=== PATIENT | female | born 1955 | race Caucasian/White ===

== ENCOUNTER → 2017-11-23 | Outpatient (CLI) | payer OTHER ==
[~2017-11-23] VITALS: Ht 160 cm; Wt 81.6 kg
[~2017-11-23] MED LIST: ALBUTEROL2.5 MG/0.1 INH; ALLEGRA ALLERG180 MG PO; AMBIEN 10 MG TA10 MG PO; ANASTROZOLE1 MG PO; ANUSOL-HC25 MG RECTAL; BENADRYL25 MG PO; BENTYL 20 MG TA20 M1 PO; CALCIUM + VIT1 EACH PO; CELEBREX 200 M200 MG PO; CIPRO500 MG/5 M; CLARITIN-D 24 H1 TA1; COMBIVENT INH; CYCLOBENZAPRINE10 MG; DUONEB 2.5-0.5 M3 ML INH; EPIPEN 2-P0.3 MG/0.3; FAMOTIDINE PO; FISH OIL 1,0001 EAC5 PO; FLONASE; FLONASE 0.05%50 MCG; HYDROCODON-ACE1 EAC7 PO; HYDROCORTISONE30 G9 RECTAL; IBUPROFEN 800800 M1; LIDOCAINE VISC100 ML SWISH&SPIT; MEDROL DOSPAK21 TA1 PO; MEDROLDOSEPACK PO; MOBIC15 MG PO; NEURONTIN600 MG PO; PERCOCET 5-3251 EACH PO; PHENTERMINE H37.5 MG; PLAVIX 75 MG TA75 M1 PO; PRAVACHOL40 MG PO; PROTONIX40 M2 PO; QUESTRAN POWDE378 GM PO; ROBAFEN AC SYR120 ML PO; ROBITUSSIN100 MG/52; SINGULAIR 10 MG10 M1 PO; SYMBICORT160 MCG/4. INH; TIZANIDINE HCL2 M1 PO; TRAMADOL 50 MG50 MG PO; TRAZODONE 150150 M1 PO; TRIAMCINOLONE A80 G2 TOP; TUMS PO; VENTOLIN HFA 1818 GM INH; VENTOLIN HFA INH8 GM INH; VITAMIN D1000 UNI1 PO; VITAMIN D2000 UNI1 PO; XANAX 0.5 MG0.5 M1 PO; ZANTAC; ZPAK PO
--- NOTE | ~2017-11-23 | CATHLAB ---
[facility] [address] [place] [address] INVASIVE PROCEDURE REPORT Name: RUDDY CARBAJAL Room #: REG [facility]#: [id number] Admission: 11/23/17 Attend Phys: Sherif Bustillo Discharge: Date of : 55 Date of Service: 11/30/17 0950 Report #: [id number] THIS REPORT FOR: //name// APPROVED REPORT Study performed: 11/23/2017 08:16:02 Patient Details Patient Status: Out-Patient Room #: The patient is a 62 year-old female Event Personnel Sherif Millan Overlay Operator, Kin Peres Dining Host, Moy Roman RT(R)(CV) Monitor, Fern Mohan Monitor, Manny White Scrub Procedures Performed Art Access - R femoral artery* Left Heart Cath w/or w/o Coronaries [id number] [facility] [id number] Initial Mod Sed Same Phys/QHP Gr5y [id number] Hemostasis with Manual pressure, supervision of conscious sedation Indication Positive stress test, Chest pain Procedure Narrative The patient was brought electively to the Cardiac Catheterization Laboratory and was prepped and draped in a sterile manner. The Right Groin^ was infiltrated with 1% Lidocaine subcutaneous anesthesia. A PINNACLE 4FR Sheath #[id number] sheath was inserted into the RFA^. Coronary angiography was performed using coronary diagnostic catheters. The right coronary system was accessed and visualized with a JR4 catheter. The left coronary system was accessed and visualized with a JL4 catheter. The left ventricle was accessed and visualized with a Pigtail catheter. Left ventricular/Aortic Valve gradient assessed via catheter pullback. Hemostasis was obtained with manual pressure following sheath removal without any complications. The patient tolerated the procedure well and there were no complications associated with the procedure. There was no hematoma. Intraoperative Conscious Sedation Sedation start time: 937 Case end Time: 1015 Versed 2 mg [facility] [place] [address] INVASIVE PROCEDURE REPORT Name: SOLOMONRUDDY F Room #: REG [facility]#: [id number] Admission: 11/23/17 Attend Phys: Sherif Bustillo Discharge: Date of : 55 Date of Service: 11/30/17 0950 Report #: [id number] Fluoro Time: 1.50 minutes Dose: DAP 1652.00 cGycm2 216 mGy Contrast Type and Amount: Omnipaque 40 ml Coronary Angiography The patient's coronary anatomy is right dominant. Diagnostic Cath Left Main Moderate caliber vessel normal origin and has a minimal proximal taper of less than 20%. No obstructive lesions are present. LAD Small to moderate caliber type II vessel which courses in the anterior interventricular sulcus. It gives rise to small diagonal branches. It has luminal irregularities but no high-grade lesions are noted. Does taper 2 quite small in size at the apex which is his terminus Diagonal 1 Small-caliber vessel without significant obstructive lesion Circumflex Small to moderate non-dominant vessel courses laterally giving rise to a large marginal branch which is tortuous in its course. The circumflex then terminates as a small vessel and the posterior wall of the heart. The marginal branches without significant high-grade lesions OM1 Small liver vessel at significant obstructive lesions noted Right Coronary Large-caliber dominant vessel which courses in the AV groove with luminary irregularities proximally. He gives us a posterior descending artery and posterolateral branch which are small in size. No high-grade obstructive lesions are noted although plaquing which is mild is seen as described R PDA Lydia or vessel without significant obstructive lesions noted Left Ventriculography Left Ventriculography was not performed. Hemodynamics The aortic pressure is 118/70 mmHg with a mean of 92 mmHg. The left ventricular pressure is 139/13 mmHg with a mean of mmHg. The left ventricular end diastolic pressure is 20 mmHg. Conclusion 1. 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 Normal hemodynamics [facility] [address] [place] [address] INVASIVE PROCEDURE REPORT Name: RUDDY CARBAJAL Room #: [facility]#: [id number] Admission: 11/23/17 Attend Phys: Sherif Bustillo Discharge: Date of : 55 Date of Service: 11/30/17 0950 Report #: [id number] Recommendations Cardiac Risk Reduction Program <ELECTRONICALLY SIGNED> By: Sherif Millan MD 11/30/1750 9 Sherif Millan MD /INF
--- NOTE | ~2017-11-23 | EKG ---
[place] [address] [facility] [place] [address] ELECTROCARDIOGRAM REPORT Name: RUDDY CARBAJAL Room #: REG [facility]#: [id number] Admission: 11/23/17 Attend Phys: Sherif Millan Discharge: Date of : 55 Report #: [id number] THIS REPORT FOR: //name// [facility] Test Date: 2017-11-23 Test Time: 08:05:51 Pat Name: RUDDY CARBAJAL Department: Room: Gender: F Animal Care Service Worker: Lea PENA : 1955 Requested By: Sherif Millan Order Number: [id number] MD: Benedict Rojas Measurements Intervals [place] Rate: 76 P: 69 ME: 144 QRS: 7 QRSD: 90 T: 26 QT: 411 QTc: 463 Interpretive Statements Sinus rhythm RSR' in V1 or V2, right VCD Compared to ECG 08/05/2015 15:48:22 RSR' in V1 or V2 now present anterior T-wave abnormality more prominent Electronically Signed On 11-23-2017 16:13:15 CDT by Benedict Rojas [email or web address] <ELECTRONICALLY SIGNED> By: Benedict Rojas MD, [facility] 11/23/17 1613 0805 0805 Benedict Rojas MD, [facility] /EPI
--- NOTE | ~2017-11-23 | H ---
[facility] [place] [address] [place] [address] HISTORY AND PHYSICAL Name: RUDDY CARBAJAL Room #: REG [facility].#: [id number] Admission: 11/23/17 Attend Phys: Sherif Millan Discharge: Date of : 55 Report #: [id number] THIS REPORT FOR: //name// CC: Trinity Millan DATE OF SERVICE: 11/23/2017 HISTORY OF PRESENT ILLNESS: This is a very pleasant 62-year-old female patient who had been evaluated as an outpatient for chest discomfort. The patient underwent noninvasive assessment, which yielded an intermediate risk study. Etiologies other than cardiac were not identified and subsequently the patient continued to have symptomatology. She now presents for cardiac catheterization for delineation of coronary anatomy and determination of cardiac source for symptoms. PHYSICAL EXAMINATION: GENERAL: A well-developed, well-nourished white female, resting comfortably in no acute distress. VITAL SIGNS: Temperature is 36.8, pulse is 82, respirations are 12-14, blood pressure 115/61, O2 saturation on room air is 92%. HEENT: Normocephalic, atraumatic. Pupils are equal, round, reactive to light and accommodation. Extraocular muscles are intact. Sclerae and conjunctivae are anicteric. NECK: JVD is normal. Carotid upstrokes are bilaterally symmetrical. No bruits are heard. No thyromegaly. No lymphadenopathy. LUNGS: Clear to auscultation. No wheezes, rhonchi or crackles. No CVA tenderness. CARDIAC: Demonstrates a regular rhythm. Normal first and second heart sounds. No ventricular or atrial gallops, no rubs noted. No murmurs. No lifts or heaves, PMI normal. ABDOMEN: Soft, nontender, nondistended. Normal bowel sounds. EXTREMITIES: Without cyanosis, clubbing or edema. Distal pulses are intact. DTR symmetrical. NEUROLOGIC: Cranial nerves 2-12 are grossly normal and symmetrical. PSYCHIATRIC: Alert, oriented with normal affect. SKIN: Warm and dry. IMPRESSION: Chest pains and abnormal noninvasive workup. The patient had been evaluated and subsequent cardiac catheterization was recommended as stated above. The risks, complications, and alternatives of cath, angioplasty and [facility] [address] [place] [address] HISTORY AND PHYSICAL Name: RUDDY CARBAJAL Room #: [facility]#: [id number] Admission: 11/23/17 Attend Phys: Sherif Millan Discharge: Date of : 55 Report #: [id number] conscious sedation have been discussed with the patient, voices understanding and wishes to proceed. <ELECTRONICALLY SIGNED> By: Sherif Millan MD 12/10/172009 0910 0974 Sherif Millan MD /nt
[2017-11-23 07:58] VITALS: BP 115/61
[2017-11-23 08:54] LABS: HEMATOCRIT 41.5 % (37.0-47.0); HEMOGLOBIN 13.7 gm/dL (12.0-15.0); MCH 29.7 pg (26.0-34.0); MCHC 33.1 g/dL (28.0-37.0); MCV 89.9 fL (80.0-100.0); RBC 4.61 mil/uL (4.20-5.00); WBC 5.6 thou/uL (4.0-11.0)
[2017-11-23 09:03] LABS: CALCIUM 8.8 mg/dL (8.5-10.1); CREATININE 0.8 mg/dL (0.6-1.0); POTASSIUM 3.3 mmol/L (3.5-5.1)
== END | disposition home or self-care (01) ==
LOC: CATH 07:39
PROVIDERS: Internal Medicine
DX: I25.10 Atherosclerotic heart disease of native coronary artery without angina pectoris (principal); E78.5 Hyperlipidemia, unspecified; J44.9 Chronic obstructive pulmonary disease, unspecified; I73.9 Peripheral vascular disease, unspecified; K21.9 Gastro-esophageal reflux disease without esophagitis; M19.90 Unspecified osteoarthritis, unspecified site; M81.0 Age-related osteoporosis without current pathological fracture; M79.7 Fibromyalgia; E66.09 Other obesity due to excess calories; Z88.6 Allergy status to analgesic agent; Z79.899 Other long term (current) drug therapy; Z82.49 Family history of ischemic heart disease and other diseases of the circulatory system; Z98.890 Other specified postprocedural states; Z90.49 Acquired absence of other specified parts of digestive tract; Z88.8 Allergy status to other drugs, medicaments and biological substances; Z79.891 Long term (current) use of opiate analgesic

== ENCOUNTER → 2017-12-07 | Outpatient (CLI) | payer OTHER | LOC: RAD 13:42 | DX: J44.9 Chronic obstructive pulmonary disease, unspecified (principal) ==

== ENCOUNTER 2018-03-14 21:43 | Emergency (ER) | payer OTHER ==
[~2018-03-14] VITALS: Ht 160 cm; Wt 79.8 kg
[2018-03-14] MEDS ORDERED: COLESTID5 GM PO (22:56)
[2018-03-14] MEDS ORDERED: PROLIA60 MG/1 ML SUBQ (22:57)
[2018-03-14] MEDS ORDERED: FISH OIL 1,001000 M2 PO (22:57)
[2018-03-14] MEDS ORDERED: LASIX 40 MG TAB40 M2 PO (22:58)
[2018-03-14] MEDS ORDERED: POTASSIUM20 PO (23:00)
[2018-03-14] MEDS ORDERED: CRESTOR10 MG PO (23:01)
[2018-03-14] MEDS ORDERED: PRILOSEC 20 MG20 MG PO (23:55)
[2018-03-14] MEDS ORDERED: ZPAK PO (23:55)
[2018-03-14] MEDS ORDERED: PREDNISONE 20 M20 MG PO (23:55)
[2018-03-14] MEDS ORDERED: TESSALON PERLE100 MG PO (23:55)
[2018-03-15 00:40] VITALS: BP 158/64
== END 2018-03-15 00:42 | disposition home or self-care (01) ==
LOC: ER 21:43
DX: J32.9 Chronic sinusitis, unspecified (principal); J44.9 Chronic obstructive pulmonary disease, unspecified; K21.9 Gastro-esophageal reflux disease without esophagitis; J02.9 Acute pharyngitis, unspecified; M79.7 Fibromyalgia; M19.90 Unspecified osteoarthritis, unspecified site; E78.5 Hyperlipidemia, unspecified; F17.210 Nicotine dependence, cigarettes, uncomplicated; Z79.899 Other long term (current) drug therapy; Z88.1 Allergy status to other antibiotic agents; Z88.5 Allergy status to narcotic agent; Z88.8 Allergy status to other drugs, medicaments and biological substances

== ENCOUNTER → 2018-06-28 | Outpatient (CLI) | payer OTHER ==
[~2018-06-28] MED LIST changes: +COLESTID5 GM PO; +CRESTOR10 MG PO; +FISH OIL 1,001000 M2 PO; +LASIX 40 MG TAB40 M2 PO; +POTASSIUM20 PO; +PREDNISONE 20 M20 MG PO; +PRILOSEC 20 MG20 MG PO; +PROLIA60 MG/1 ML SUBQ; +TESSALON PERLE100 MG PO
== END ==
LOC: RAD 08:30
DX: J98.4 Other disorders of lung (principal)

== ENCOUNTER → 2019-09-06 | Outpatient (CLI) | payer OTHER | LOC: SJCVC 13:51 | DX: E78.5 Hyperlipidemia, unspecified (principal); I25.10 Atherosclerotic heart disease of native coronary artery without angina pectoris; I10 Essential (primary) hypertension ==

== ENCOUNTER → 2019-09-07 | Outpatient (CLI) | payer OTHER | LOC: SJCVCIMAG 08:49 | DX: I07.1 Rheumatic tricuspid insufficiency (principal); I25.10 Atherosclerotic heart disease of native coronary artery without angina pectoris; J44.9 Chronic obstructive pulmonary disease, unspecified; E11.9 Type 2 diabetes mellitus without complications ==

== ENCOUNTER 2019-09-27 06:48 | Day surgery (SDC) | payer OTHER ==
[~2019-09-27] VITALS: Ht 160 cm; Wt 82.6 kg
--- NOTE | ~2019-09-27 | O ---
[facility] [place] [address] [place] [address] OPERATIVE REPORT Name: RUDDY CARBAJAL Room #: 150-5 [facility]#: [id number] Admission: 09/27/19 Attend Phys: John Luna MD Discharge: Date of : 55 Report #: [id number] THIS REPORT FOR: cc: Trinity Monroy MD,Trinity Luna,John Adorno MD ~ CC: Trinity Luna DATE OF SERVICE: 09/27/2019 SURGEON: John Luna MD DISEASE CASE MANAGER RN: None. PREOPERATIVE DIAGNOSIS: Bilateral upper lid dermatochalasia with superior visual field defect. POSTOPERATIVE DIAGNOSIS: Bilateral upper lid dermatochalasia with superior visual field defect. OPERATION PERFORMED: Bilateral upper lid functional blepharoplasty. ANESTHESIA: Local with IV sedation. COMPLICATIONS: None. INDICATIONS FOR SURGERY: This patient has acquired upper lid dermatochalasia with superior visual field loss both eyes because of excessive upper lid tissues to include skin and fat. Visual field testing demonstrates dense superior visual defects. Retesting with the upper lid elevated shows an improvement in visual field loss of over 30% and in excess of 12 degrees. The current procedures are undertaken in order to improve the patient's visual function. Informed consent was obtained to include but not limited to the loss of vision, bleeding, infection, scarring, failure to improve the problem and need for further surgery. DESCRIPTION OF OPERATION: The patient was taken to the operating room, where 2% Xylocaine with epinephrine mixed with equal parts of 0.75% Marcaine with Wydase was administered transcutaneously to each upper lid. The patient was then prepped and draped in the usual sterile fashion and a skin-marking pen was then utilized to outline an upper lid crease that was symmetrical on each side. Graefe forceps were then used to quantitate the redundant upper lid skin and it was similarly outlined. The incisions were then made with Yenni scissors and [facility] [address] [place] [address] OPERATIVE REPORT Name: RUDDY CARBAJAL Room #: [address] [place] [address].#: [id number] Admission: 09/27/19 Attend Phys: John Luna MD Discharge: Date of : 55 Report #: [id number] a skin-muscle flap removed from each side with high-temp cautery. Hemostasis was achieved with the monopolar cautery as it was throughout the case. The orbital septum was then identified and the central and medial fat pads were inspected. The redundant soft tissue was then sculpted with the monopolar cautery. The upper lid crease was then reformed with tightening of the pretarsal orbicularis muscle. The upper lid crease was then further reformed with multiple interrupted 6-0 chromic sutures. The skin was then closed with a running 6-0 plain gut suture. The wound was then cleaned and dressed with ophthalmic antibiotic ointment and a nonstick dressing. The patient was transported to the recovery area, where cold compresses were applied, having tolerated the procedure well with no anesthetic or operative complications being noted. By: 0913 0920 John Luna MD /nt
[~2019-09-27 06:48] MED LIST changes: -ANASTROZOLE1 MG PO; +ARIMIDEX1 MG PO; +BROVANA15 MCG/2 M INH; +FOSAMAX 70 MG T70 MG PO; +IPRAT-ALBUT 0.5-3 ML INH; +LISINOPRIL5 MG PO; +METFORMIN HCL500 M3 PO; +PULMICORT0.5 MG/22 INH; +VITAMIN D325 MC3 PO
[2019-09-27 08:52] VITALS: BP 108/56
== END 2019-09-27 09:55 | disposition home or self-care (01) ==
LOC: TBA 06:48 → OR 06:48
DX: H02.831 Dermatochalasis of right upper eyelid (principal); H02.834 Dermatochalasis of left upper eyelid; H53.462 Homonymous bilateral field defects, left side; H53.461 Homonymous bilateral field defects, right side; I10 Essential (primary) hypertension; E11.9 Type 2 diabetes mellitus without complications; E78.00 Pure hypercholesterolemia, unspecified; F41.9 Anxiety disorder, unspecified; J43.9 Emphysema, unspecified; M79.7 Fibromyalgia; K21.9 Gastro-esophageal reflux disease without esophagitis; M19.90 Unspecified osteoarthritis, unspecified site; M85.80 Other specified disorders of bone density and structure, unspecified site; Z98.890 Other specified postprocedural states; Z85.3 Personal history of malignant neoplasm of breast; Z79.899 Other long term (current) drug therapy; Z90.49 Acquired absence of other specified parts of digestive tract; Z11.59 Encounter for screening for other viral diseases; Z86.73 Personal history of transient ischemic attack (TIA), and cerebral infarction without residual deficits; Z87.891 Personal history of nicotine dependence; Z88.8 Allergy status to other drugs, medicaments and biological substances
CPT/HCPCS: 50010; 50101; 50398; 51636; 56531; 62110; 62850; 70005

== ENCOUNTER → 2019-10-29 | Outpatient (CLI) | payer OTHER ==
[~2019-10-29] MED LIST changes: +ASA5UEC PO; +CALCIUM500 MG PO; +IMODIUM A-D2 MG PO; +TYLENOL EXTRA500 MG PO; +VITAMIN D3125 MC2 PO; +VITAMIN D31250 MC1 PO
== END ==
LOC: RAD 13:38
PROVIDERS: ATTEND Internal Medicine Pulmonary Disease
DX: J47.9 Bronchiectasis, uncomplicated (principal)

== ENCOUNTER 2019-11-08 11:06 | Emergency (ER) | payer OTHER ==
[~2019-11-08] VITALS: Ht 160 cm; Wt 80.7 kg
[2019-11-08 14:56] VITALS: BP 109/64
== END 2019-11-08 14:56 | disposition home or self-care (01) ==
LOC: ER 11:06
DX: M25.551 Pain in right hip (principal); R20.0 Anesthesia of skin; M79.7 Fibromyalgia; K21.9 Gastro-esophageal reflux disease without esophagitis; E11.9 Type 2 diabetes mellitus without complications; M19.90 Unspecified osteoarthritis, unspecified site; E78.00 Pure hypercholesterolemia, unspecified; Z90.49 Acquired absence of other specified parts of digestive tract; Z90.89 Acquired absence of other organs; J44.9 Chronic obstructive pulmonary disease, unspecified; F17.210 Nicotine dependence, cigarettes, uncomplicated; Z86.73 Personal history of transient ischemic attack (TIA), and cerebral infarction without residual deficits; Z79.899 Other long term (current) drug therapy; Z79.82 Long term (current) use of aspirin; Z88.8 Allergy status to other drugs, medicaments and biological substances; Z88.5 Allergy status to narcotic agent; Z91.048 Other nonmedicinal substance allergy status; Z88.1 Allergy status to other antibiotic agents; W19.XXXA Unspecified fall, initial encounter; Y93.01 Activity, walking, marching and hiking; Y92.481 Parking lot as the place of occurrence of the external cause; Y99.8 Other external cause status

== ENCOUNTER 2019-11-14 08:38 | Inpatient (IN) | payer OTHER ==
[2019-11-05 09:24] LABS: HEMATOCRIT 42.2 % (37.0-47.0); HEMOGLOBIN 13.9 gm/dL (12.0-15.0); MCH 29.1 pg (26.0-34.0); MCHC 32.9 g/dL (28.0-37.0); MCV 88.5 fL (80.0-100.0); RBC 4.77 mil/uL (4.20-5.00); RDW 14.9 % (10.5-14.5); URINE BILIRUBIN NEGATIVE (Negative); URINE BLOOD NEGATIVE (Negative); URINE CLARITY CLEAR; URINE COLOR YELLOW; URINE GLUCOSE-RANDOM* NEGATIVE (Negative); URINE KETONES TRACE (Negative); URINE NITRITE-REFLEX NEGATIVE (Negative); URINE PROTEIN (DIPSTICK) NEGATIVE (Negative); URINE SPECIFIC GRAVITY 1.025 (1.005-1.035); URINE UROBILINOGEN 0.2 E.U./dl (0.2-1.0); WBC 5.6 thou/uL (4.0-11.0)
[2019-11-05 09:30] LABS: URINE LEUKOCYTES-REFLEX 2+ (Negative)
[2019-11-05 09:34] LABS: CALCIUM 9.2 mg/dL (8.5-10.1); CREATININE 0.9 mg/dL (0.6-1.0); POTASSIUM 4.2 mmol/L (3.5-5.1)
[2019-11-05 09:35] LABS: PROTIME 10.3 Seconds (9.3-11.4)
[2019-11-05 09:50] LABS: BACTERIA-REFLEX 1-9 Few /HPF (None Seen); CASTS None Seen /LPF (None Seen); CRYSTALS None Seen /LPF (None Seen); SQUAMOUS None Seen /LPF (0-3); URINE RBC None Seen /HPF (0-2)
[~2019-11-14] VITALS: Ht 162.6 cm; Wt 82.1 kg
[2019-11-14 12:06] VITALS: BP 136/92
[2019-11-14 14:55] VITALS: BP 136/92
[2019-11-14 16:55] VITALS: BP 98/52
[2019-11-14 17:50] VITALS: BP 108/72
[2019-11-14 19:07] VITALS: BP 102/58
[2019-11-15 02:52] VITALS: BP 142/92
[2019-11-15 05:38] LABS: HEMATOCRIT 39.7 % (37.0-47.0); HEMOGLOBIN 12.7 gm/dL (12.0-15.0)
[2019-11-15 05:42] LABS: POTASSIUM 3.9 mmol/L (3.5-5.1)
[2019-11-15 07:46] VITALS: BP 134/85
[2019-11-15 12:49] VITALS: BP 134/85
[2019-11-15 13:26] VITALS: BP 134/85
--- NOTE | 2019-11-21 13:10 | O ---
[facility] [place] [place] [address] OPERATIVE REPORT Name: RUDDY CARBAJAL Room #: 443-P [facility] M.R.#: [id number] Admission: 11/14/19 Attend Phys: Freedom Alvarenga Discharge: 11/15/19 Date of : 55 Report #: [id number] THIS REPORT FOR: cc: Trinity Monroy MD, Cora A. MD VanDenBerghe, Gregory R. MD ~ CC: Trinity Knight PREOPERATIVE DIAGNOSES: Left shoulder pain, humeral head avascular necrosis, biceps tendinopathy. POSTOPERATIVE DIAGNOSES: Left shoulder pain, humeral head avascular necrosis, biceps tendinopathy. PROCEDURE PERFORMED: Left shoulder humeral head replacement with open biceps tenodesis. SURGEON: Freedom Hudson MD HIGHWAY CONSTRUCTION INSPECTOR: Maru Nobles PA-C. ANESTHESIA: General with preoperative ultrasound-guided interscalene block. FLUIDS: 700 mL crystalloid. ESTIMATED BLOOD LOSS: Approximately 25 mL. IMPLANTS UTILIZED: DePuy [employer] Unite size 8 stem with 135 degree size ____ proximal body and a 40 x 15 mm eccentric humeral head. DESCRIPTION OF PROCEDURE: After proper identification of the patient and operative site in preoperative holding area, the operative site was signed by myself. Prophylactic antibiotics given. The patient elected to proceed with a block after reviewing the risks, benefits, alternatives and potential complications with anesthesia. The patient's COVID test was negative. The patient was brought back to the operative suite after induction of satisfactory general anesthesia, the left shoulder was examined. Range of motion was comparable to the preoperative assessment. She was carefully positioned in the beach chair with head of bed elevated approximately 40 degrees. Left shoulder was sterilely prepped and draped in the usual manner. Final skin draping was with Ioban. Anterior deltopectoral approach was planned. Skin was incised sharply. Full-thickness skin flaps were developed. Deltopectoral interval was identified and there was no significant cephalic vein present. Subdeltoid space was carefully opened. Bicipital groove was opened. Partial-thickness tearing and biceps tendinopathy was noted and a biceps tenodesis was performed to the [facility] [address] [place] [address] OPERATIVE REPORT Name: RUDDY CARBAJAL Room #: 443-P [facility] IN M.R.#: [id number] Admission: 11/14/19 Attend Phys: Freedom Alvarenga Discharge: 11/15/19 Date of : 55 Report #: [id number] upper border of the pectoralis major. Transverse ligament and rotator interval were opened. Anterior circumflex vessels were ligated and cauterized. A lesser tuberosity osteotomy was performed and a #2 FiberWire was placed within the subscap for gentle retraction. At this point, humeral head was delivered, some collapse was noted and some degenerative appearing chondral surface. Glenoid chondral surface was normal in its appearance with minimal wear or degenerative change and appeared amenable to preserving. We had discussed options of humeral head replacement versus total shoulder arthroplasty with the patient and she would prefer the humeral head replacement if the chondral surface appeared to be well preserved on the glenoid side, which it had. The humeral head was then osteotomized at 135 degrees and a cut of 20 degrees of retroversion, which matched her [place] version. The rotator cuff was intact. Sclerosis about the site of the AVN was noted and the humeral head measured as a size 40 on the back table. The humerus was reamed by hand up to a size 8 stem. A trial broach was utilized. The trial was inserted and a 40 x 15 mm head provided the best overall fit and recreation of the proximal humeral anatomy. Trial implants were removed. Drill holes were placed in the anterior cortex of the humerus. The anterior capsule was carefully divided from the subscapularis with a right angle clamp and then incised. Wound was thoroughly irrigated with normal saline. Four #2 FiberWires were passed through drill holes in the anterior cortex of the humerus. The inferior ____ were wrapped around the prosthesis which was then impacted into position. Trial head was then again utilized followed by a 40 x 15 mm eccentric humeral head, which was carefully impacted into position. It nicely reapproximated the proximal humeral anatomy. Shoulder was reduced. There was good stability of the joint. At this point, the lesser tuberosity osteotomy was repaired at the joint was thoroughly irrigated with normal saline, antibiotic irrigant and this was done in a modified Dave-Ulices technique. Rotator interval was closed with #2 FiberWire as well. The remainder of the cuff was intact. At this point, the wound was again irrigated. One gram of vancomycin powder was utilized, half at deep, half at more superficial. Deltopectoral interval was closed followed by the subcutaneous tissues and a running 4-0 Monocryl was used at the skin layer. This was sealed with Dermabond. She was then placed in a sling and abduction pillow. A qualified assistant plant control operator utilized throughout the entire procedure to aid in patient limb positioning, visualization and retraction of soft tissues as well as a sling and dressing application. Sling will be utilized for 4 weeks postoperatively. <ELECTRONICALLY SIGNED> By: Freedom Hudson MD 11/21/19 1310 1150 1228 MD katelyn Braden
== END 2019-11-15 14:13 | disposition home health service (06) | DRG 483 ==
LOC: PRE 08:38 → 4S 09:33 → TBA 09:33 → PRE 10:48 → 4S 14:53 → PRE 15:37 → 4S 11-15 14:13
PROVIDERS: Physician Assistant Surgical; ADMIT Orthopaedic Surgery Sports Medicine; ATTEND Orthopaedic Surgery Sports Medicine
PROC: 0RRK0J6 Replacement of Left Shoulder Joint with Synthetic Substitute, Humeral Surface, Open Approach (ICD-10-PCS; principal; 2019-11-14)
PROC: 0LS40ZZ Reposition Left Upper Arm Tendon, Open Approach (ICD-10-PCS; 2019-11-14)
DX: M19.012 Primary osteoarthritis, left shoulder (principal); M87.822 Other osteonecrosis, left humerus; J96.11 Chronic respiratory failure with hypoxia; M75.22 Bicipital tendinitis, left shoulder; I10 Essential (primary) hypertension; E78.5 Hyperlipidemia, unspecified; E11.9 Type 2 diabetes mellitus without complications; K21.9 Gastro-esophageal reflux disease without esophagitis; I25.10 Atherosclerotic heart disease of native coronary artery without angina pectoris; Z20.828 Contact with and (suspected) exposure to other viral communicable diseases; M81.0 Age-related osteoporosis without current pathological fracture; J45.909 Unspecified asthma, uncomplicated; M54.16 Radiculopathy, lumbar region; J43.9 Emphysema, unspecified; M47.817 Spondylosis without myelopathy or radiculopathy, lumbosacral region; Z95.820 Peripheral vascular angioplasty status with implants and grafts; Z90.49 Acquired absence of other specified parts of digestive tract; Z85.3 Personal history of malignant neoplasm of breast; Z83.3 Family history of diabetes mellitus; Z83.1 Family history of other infectious and parasitic diseases; Z86.73 Personal history of transient ischemic attack (TIA), and cerebral infarction without residual deficits; Z88.6 Allergy status to analgesic agent; Z88.1 Allergy status to other antibiotic agents; Z88.8 Allergy status to other drugs, medicaments and biological substances; Z79.82 Long term (current) use of aspirin; Z79.899 Other long term (current) drug therapy; Z82.61 Family history of arthritis; Z82.49 Family history of ischemic heart disease and other diseases of the circulatory system
CPT/HCPCS: 10102; 50010; 50101; 50172; 50386; 50417; 50697; 50733; 50935; 51320; 52001; 52138; 53000; 53078; 54118; 56524; 56525; 56526; 56530; 57095; 57103; 57423; 57474; 57929; 57930; 62110; 62900; 70005

== ENCOUNTER → 2020-02-08 | Outpatient (CLI) | payer OTHER ==
[~2020-02-08] MED LIST changes: +K-DUR 20 MEQ T20 MEQ PO; +MELOXICAM15 MG PO; +VITAMIN D3250 MCG PO
== END ==
LOC: LAB 07:32
PROVIDERS: ATTEND Orthopaedic Surgery
DX: Z01.812 Encounter for preprocedural laboratory examination (principal); Z20.828 Contact with and (suspected) exposure to other viral communicable diseases

== ENCOUNTER 2020-02-14 06:00 | Inpatient (IN) | payer OTHER ==
[2020-02-08 09:04] LABS: HEMATOCRIT 41.6 % (37.0-47.0); HEMOGLOBIN 13.4 gm/dL (12.0-15.0); MCH 28.2 pg (26.0-34.0); MCHC 32.3 g/dL (28.0-37.0); MCV 87.4 fL (80.0-100.0); RBC 4.76 mil/uL (4.20-5.00); RDW 14.5 % (10.5-14.5); WBC 6.9 thou/uL (4.0-11.0)
[2020-02-08 09:05] LABS: URINE BILIRUBIN NEGATIVE (Negative); URINE BLOOD NEGATIVE (Negative); URINE CLARITY CLEAR; URINE COLOR YELLOW; URINE GLUCOSE-RANDOM* NEGATIVE (Negative); URINE KETONES NEGATIVE (Negative); URINE LEUKOCYTES-REFLEX NEGATIVE (Negative); URINE NITRITE-REFLEX NEGATIVE (Negative); URINE PROTEIN (DIPSTICK) NEGATIVE (Negative)
[2020-02-08 09:13] LABS: PROTIME 9.8 Seconds (9.3-11.4)
[2020-02-08 09:17] LABS: ALBUMIN 3.8 g/dL (3.4-5.0); CALCIUM 9.6 mg/dL (8.5-10.1); CREATININE 0.6 mg/dL (0.6-1.0); POTASSIUM 4.4 mmol/L (3.5-5.1)
[~2020-02-14] VITALS: Ht 160 cm; Wt 74.4 kg
[2020-02-14 07:20] VITALS: BP 107/64
[2020-02-14 11:50] VITALS: BP 103/63
[2020-02-14 12:35] VITALS: BP 114/63
--- NOTE | 2020-02-14 15:37 | NUR ---
ASSESSMENT: CM REVIEWED CHART AND MET WITH PATIENT AND HER SPOUSE. PT IS S/P RIGHT TOTAL HIP REPLACEMENT. PT REPORTS SHE LIVES IN A HOUSE WITH HER SPOUSE, DAUGHTER, AND GRANDCHILDREN. PT REPORTS 4 STEPS WITH A HANDRAIL TO ENTER. PT REPORTS NO STEPS SHE HAS TO USE ONCE INSIDE. PT STATES SHE GOT UP WITH THERAPY TODAY AND DOES NOT FEEL SHE WILL NEED OUTPATIENT THERAPY. PT REPORTS HAVING A CANE AT HOME AND OXYGEN THROUGH [facility] NEEDED (2L AT BEDTIME). PHYSICAL THERAPY IS RECOMMENDING A WALKER FOR PATIENT. PT STATES SHE WILL USE [facility]. CM FAXED FACESHEET AND ORDER FOR WALKER TO [facility] AND NOTIFIED ANAHY SOLORIO. PT REPORTS HAVING A ROLLATER WALKER AT HOME BUT NEEDING A FWW. CM WILL CONTINUE TO FOLLOW TO ASSIST NEEDED.
[2020-02-14 18:15] VITALS: BP 98/51
[2020-02-14 19:20] VITALS: BP 106/68
--- NOTE | 2020-02-15 02:33 | NUR ---
PT CARE ASSUMED WITH PT IN BED WATCHING TV AT 1915.PT IS UP WITH X1 ASSIST TO THE BSC.PT IS ON 2L OF O2 NC.PT HAD A TOTAL HIP REPLACEMENT AND HAS A HEMOVAC AND ICE PACK.PT PAIN MANANGED WITH OXYCODONE WITH MUCH RELIEF.PT REQUESTED FOR BREATHING TREATMENT AND STILL CLEANER TUBE LILIAN NOTIFIED.WILL CONTINUE TO MONITOR
[2020-02-15 03:39] VITALS: BP 126/63
[2020-02-15 06:05] LABS: HEMATOCRIT 31.8 % (37.0-47.0); HEMOGLOBIN 10.1 gm/dL (12.0-15.0); MCH 28.1 pg (26.0-34.0); MCHC 31.6 g/dL (28.0-37.0); MCV 88.8 fL (80.0-100.0); RBC 3.59 mil/uL (4.20-5.00); RDW 14.5 % (10.5-14.5); WBC 8.6 thou/uL (4.0-11.0)
[2020-02-15 07:15] VITALS: BP 104/53
[2020-02-15 07:20] VITALS: BP 153/103
--- NOTE | 2020-02-15 11:30 | O ---
[facility] [place] [address] OPERATIVE REPORT Name: RUDDY CARBAJAL Room #: 442-P ADM IN M.R.#: [id number] Admission: 02/14/20 Attend Phys: Manny Henson MD Discharge: Date of : 55 Report #: [id number] THIS REPORT FOR: cc: Trinity Monroy MD, Cora A. MD Clymer,Manny Vidal MD ~ CC: Trinity Henson DATE OF SERVICE: 02/14/2020 PREOPERATIVE DIAGNOSES: Avascular necrosis and degenerative arthritis, right hip. POSTOPERATIVE DIAGNOSES: Avascular necrosis and degenerative arthritis, right hip. PROCEDURE: Right total hip arthroplasty. HISTORY: This 64-year-old female has difficulty with avascular necrosis, which has involved multiple joints. She has already had a total shoulder replacement with good result. She now has a painful right hip. MRI study confirmed avascular necrosis. Plain x-rays revealed only minor degenerative change without much deformity of the head. Nevertheless, her symptoms are significant and unresponsive. She has elected to go ahead with right total hip arthroplasty. DESCRIPTION OF PROCEDURE: The patient was taken to the operating room where she was placed under general anesthesia. Prophylactic intravenous antibiotics were administered. She was turned to the left lateral decubitus position. The right hip, thigh and leg were meticulously prepped and draped. A slightly curving posterolateral skin incision was made centered over the greater trochanter. This was carried through fascia and muscle layers to expose the posterior aspect of the hip joint. The short external rotators and capsule were taken down and preserved and tagged with several #1 FiberWire sutures. The hip was dislocated posteriorly. There was not significant deformity of the head, but there was some degenerative change on both the head and acetabulum. A femoral neck osteotomy was performed. The Weiss and Nephew hip system was utilized. The femoral canal was opened with reamers and hand broaches and a size 12 Synergy stem seemed to fit most appropriately. Attention was then directed to the acetabulum. This was sequentially reamed and a 46 mm reamer seemed to fit most appropriately. A Weiss and Nephew size 46 outside diameter StikTite 3-hole shell was then inserted. This was placed in alignment with her true acetabulum, which positioned this in about 45 degrees off of vertical and about 15-20 degrees of anteversion. It seated nicely and appeared to be secure. In addition, 3 screws were placed through the apical holes engaging [facility] [address] [place] [address] OPERATIVE REPORT Name: RUDDY CARBAJAL Room #: 442-P [facility].#: [id number] Admission: 02/14/20 Attend Phys: Manny Henson MD Discharge: Date of : 55 Report #: [id number] periacetabular bone with good purchase, which added to the stability. A 28-mm polyethylene liner was then inserted, positioning the 20-degree elevated rim at about the 9 o'clock posterior position. It seated nicely and appeared to be secure. A trial reduction was performed and again the size 12 high offset femoral broach seemed to fit most appropriately with appropriate alignment, range of motion, stability and leg length. The trial broach was removed and the permanent Weiss and Nephew size 12 Synergy porous high offset femoral component was then brought onto the field. This was impacted into the canal, positioning this in about 15 degrees of anteversion. It seated nicely and appeared to be secure. A femoral head was selected using the 28 mm diameter and a +0 neck length using the Oxinium head. This was impacted on the Mejia taper. The hip was reduced. Alignment, range of motion, stability and leg length were assessed and felt to be satisfactory. The wound was copiously irrigated. Good hemostasis was established. The short external rotators were reattached to the greater trochanter using several of #1 FiberWire sutures passed through small drill holes in the greater trochanter. This also added to the hip stability. A single Hemovac was left in the wound exiting through a separate stab incision. The fascia was closed with multiple #1 Vicryl sutures and the subcutaneous tissues were closed with 0 Monocryl. The skin was closed with skin sussy. A sterile dressing was applied. The patient was awakened and returned to recovery room in good condition. <ELECTRONICALLY SIGNED> By: Manny Henson MD 02/15/20 1130 0917 0932 Manny Henson MD /nt
[2020-02-15 11:47] VITALS: BP 104/53
--- NOTE | 2020-02-15 13:09 | NUR ---
on-going assessment: cm REVIEWED CHART AND SPOKE WITH PATIENT. PHYSICAL THERAPY IS STILL RECOMMENDING A WALKER AND PT PREFERS TO USE [facility] WHO HER HOME OXYGEN IS THROUGH. CM FAXED REFERRAL FOR WALKER TO [facility] AND [facility] BROUGHT WALKER UP FOR PATIENT. CM MET WITH PATIENT AND PT REPORTS SHE DOES NOT FEEL SHE WILL NEED HH AT DISCHARGE. PT HAS HAD [facility] IN THE PAST AND STATES SHE PREFERS NOT TO HAVE HOME HEALTH. IF PATIENT CONTINUES TO PROGRESS WITH THERAPY LIKELY HOME THIS WEEKEND. PTS WALKER FOR HOME IS AT THE BEDSIDE. CM WILL CONTINUE TO FOLLOW TO ASSIST NEEDED.
[2020-02-15 15:19] VITALS: BP 125/58
[2020-02-15 15:50] LABS: HEMATOCRIT 32.4 % (37.0-47.0); HEMOGLOBIN 10.4 gm/dL (12.0-15.0)
--- NOTE | 2020-02-15 17:14 | NUR ---
DISCONTINUED HEMO VAC DRAIN AT 100 NO DISCOMFORT TO PATIENT. HAD 5 CC OUTPUT.
--- NOTE | 2020-02-15 18:42 | NUR ---
PATIENT WAS GIVEN SUPP AND HAD MED BOWEL MOVEMENT. HEMOVAC DCD HAD 5 CC IN DRAIN. HAS USED BSC AND UP TO BEDSIDE CHAIR. WALKED HALLS WITH THERAPY. WALKER DELIEVERED AND PATIENT TO DC TO HOME TUESDAY. O2 2L / NC AND PRN PAIN MED GIVEN WHEN REQUESTED.
[2020-02-15 22:48] VITALS: BP 138/57
--- NOTE | 2020-02-16 01:36 | NUR ---
PATIENT ALERT AND ORIENTED X4. VERY ANXIOUS AT BEGINNING OF SHIFT. PATIENT REQUESTED TRAZADONE 150MG PRN HS AND ORDER WRITTEN FROM RECONCILIATION MEDICATION SHEET BY PENELOPE MARVIN. ALSO GIVEN MEDICATION FOR NAUSEA AND PAIN. FREQUENT CALLS WITHIN A SHORT PERIOD OF TIME (15 MIN) DUE TO ANXIETY. PATIENT CALMED DOWN ENOUGH TO GET SOME REST AT TIME OF NOTE. WILL MONITOR.
[2020-02-16 06:10] LABS: HEMATOCRIT 35.8 % (37.0-47.0); HEMOGLOBIN 11.4 gm/dL (12.0-15.0); MCH 28.5 pg (26.0-34.0); MCHC 31.8 g/dL (28.0-37.0); MCV 89.4 fL (80.0-100.0); RBC 4.01 mil/uL (4.20-5.00); RDW 14.7 % (10.5-14.5); WBC 8.6 thou/uL (4.0-11.0)
[2020-02-16 08:00] VITALS: BP 135/68
[2020-02-16] MEDS ORDERED: NORCO 10-325 T1 EACH PO (09:05)
--- NOTE | 2020-02-16 09:34 | D ---
[facility] [place] [address] DISCHARGE SUMMARY Name: RUDDY CARBAJAL Room #: 442-P [facility] M.R.#: [id number] Admission: 02/14/20 Attend Phys: Manny Henson MD Discharge: Date of : 55 Report #: [id number] THIS REPORT FOR: cc: Trinity Monroy MD,Trinity Henson,Manny Vidal MD ~ THIS REPORT FOR: //name// CC: Trinity Henson DATE OF SERVICE: 02/16/2020 FINAL DIAGNOSES: 1. End-stage degenerative arthritis, right hip. 2. Hypertension. 3. Diabetes. OPERATION PROCEDURE: Right total hip arthroplasty. HISTORY: This 64-year-old female with multiple medical problems, has developed both avascular necrosis and degenerative arthritis in multiple joints. She underwent previous total shoulder replacement with good result. She is here now for right total hip. HOSPITAL COURSE: The patient was taken to the operating room on 02/14/2020, underwent right total hip replacement. She tolerated that well. Postoperatively, her pain was well controlled on oral analgesics. She was able to resume a regular diet. Her other medical problems seemed to be well controlled. She seems to be safe and functional with a walker and feels ready for discharge home today. She is instructed to continue her diabetic diet and her routine medications. DISCHARGE MEDICATIONS: Her medications include hydrocodone 10 mg every 4-6 hours p.r.n. for pain, Osiris 180 mg daily, Flonase 2 sprays daily, Protonix 40 mg daily, tizanidine 2 mg p.r.n. for muscle spasm, gabapentin 600 mg 3 times daily for general pain management, Plavix 75 mg daily, Singulair 10 mg daily, Ventolin inhaler 2 puffs daily, Lasix 40 mg daily, Crestor 10 mg daily, Fosamax 70 mg weekly, metformin 500 mg twice daily, lisinopril 5 mg daily and tramadol 50 mg q.6 hours p.r.n. for mild pain. She will continue moderate activity at home using a walker for balance. If necessary, she may have some home visiting therapy and we will probably advance to outpatient therapy within the coming week. I have asked her to call me [address] [address] DISCHARGE SUMMARY Name: RUDDY CARBAJAL Room #: 442-P [facility].#: [id number] Admission: 02/14/20 Attend Phys: Manny Henson MD Discharge: Date of : 55 Report #: [id number] should there be any problems or questions. I will plan to see her back in my office in 1 week for followup and in 2 weeks for suture removal. <ELECTRONICALLY SIGNED> By: Manny Henson MD 02/16/20 0934 [id number] Manny Henson MD /nt
--- NOTE | 2020-02-16 10:02 | NUR ---
Assumed care of pt at 0700. Pt a&ox4. Pain controlled with prn pain meds. Dressing intact. Pt worked with physical therapy. Some nausea noted. Will administer anti-emetic. Famiyl at bedside. Scripts in the chart. Pt will discharge to home. Call light within reach.
[2020-02-16 10:06] VITALS: BP 104/53
== END 2020-02-16 11:30 | disposition home or self-care (01) | DRG 470 ==
LOC: TBA 06:00 → 4S 06:00 → PRE 07:48 → 4S 12:10 → PRE 14:15 → 4S 02-16 11:30
PROVIDERS: Internal Medicine; ADMIT Orthopaedic Surgery; ATTEND Orthopaedic Surgery
PROC: 0SR902Z Replacement of Right Hip Joint with Metal on Polyethylene Synthetic Substitute, Open Approach (ICD-10-PCS; principal; 2020-02-14)
DX: M16.11 Unilateral primary osteoarthritis, right hip (principal); J96.11 Chronic respiratory failure with hypoxia; M87.88 Other osteonecrosis, other site; D64.9 Anemia, unspecified; I10 Essential (primary) hypertension; E78.5 Hyperlipidemia, unspecified; G47.33 Obstructive sleep apnea (adult) (pediatric); J44.9 Chronic obstructive pulmonary disease, unspecified; K21.9 Gastro-esophageal reflux disease without esophagitis; Z90.49 Acquired absence of other specified parts of digestive tract; Z95.820 Peripheral vascular angioplasty status with implants and grafts; Z99.81 Dependence on supplemental oxygen; Z88.6 Allergy status to analgesic agent; Z88.1 Allergy status to other antibiotic agents; Z88.8 Allergy status to other drugs, medicaments and biological substances; Z85.3 Personal history of malignant neoplasm of breast; Z82.49 Family history of ischemic heart disease and other diseases of the circulatory system; Z83.3 Family history of diabetes mellitus
CPT/HCPCS: 10102; 50010; 50101; 50382; 50414; 51412; 53000; 53368; 56521; 56525; 56530; 57095; 57103; 62110; 62900; 70005

== ENCOUNTER → 2020-05-15 | Outpatient (CLI) | payer OTHER ==
[~2020-05-15] MED LIST changes: +NORCO 10-325 T1 EACH PO
== END ==
LOC: SJCVC 10:48
PROVIDERS: ATTEND Internal Medicine
DX: E11.51 Type 2 diabetes mellitus with diabetic peripheral angiopathy without gangrene (principal); I25.10 Atherosclerotic heart disease of native coronary artery without angina pectoris; E78.5 Hyperlipidemia, unspecified; I95.9 Hypotension, unspecified; Z88.5 Allergy status to narcotic agent; Z88.1 Allergy status to other antibiotic agents; Z79.82 Long term (current) use of aspirin; Z79.899 Other long term (current) drug therapy; Z87.891 Personal history of nicotine dependence

== ENCOUNTER → 2020-12-26 | Outpatient (CLI) | payer OTHER | LOC: SJCVCIMAG 07:50 | PROVIDERS: ATTEND Internal Medicine | DX: I05.9 Rheumatic mitral valve disease, unspecified (principal); I70.202 Unspecified atherosclerosis of native arteries of extremities, left leg; M79.605 Pain in left leg; M79.604 Pain in right leg ==

== ENCOUNTER → 2021-01-07 | Outpatient (CLI) | payer OTHER, MEDICARE | LOC: SJCVC 12:28 | PROVIDERS: ATTEND Nuclear Medicine Nuclear Cardiology | DX: I73.9 Peripheral vascular disease, unspecified (principal); E78.2 Mixed hyperlipidemia; M79.7 Fibromyalgia; J43.2 Centrilobular emphysema; E11.9 Type 2 diabetes mellitus without complications; F41.9 Anxiety disorder, unspecified; F32.9 Major depressive disorder, single episode, unspecified; K21.9 Gastro-esophageal reflux disease without esophagitis; Z79.82 Long term (current) use of aspirin; Z79.899 Other long term (current) drug therapy; Z79.84 Long term (current) use of oral hypoglycemic drugs; Z88.1 Allergy status to other antibiotic agents; Z88.8 Allergy status to other drugs, medicaments and biological substances; Z87.891 Personal history of nicotine dependence ==

== ENCOUNTER → 2021-01-20 | Outpatient (CLI) | payer OTHER, MEDICARE ==
[~2021-01-20] VITALS: Ht 160 cm; Wt 76.4 kg
[~2021-01-20] MED LIST changes: +ARTHRITIS PAIN100 GM PO; +BUSPIRONE HCL5 MG PO; +OXYBUTYNIN 5 MG5 M2 PO
[2021-01-20 07:58] LABS: HEMATOCRIT 40.7 % (37.0-47.0); MCH 27.6 pg (26.0-34.0); MCHC 31.8 g/dL (28.0-37.0); MCV 86.7 fL (80.0-100.0); RBC 4.7 mil/uL (4.20-5.00); RDW 14.9 % (10.5-14.5); WBC 4.7 thou/uL (4.0-11.0)
[2021-01-20 08:03] LABS: CREATININE 0.8 mg/dL (0.6-1.0); POTASSIUM 4.3 mmol/L (3.5-5.1)
== END | disposition home or self-care (01) ==
LOC: CATH 06:28
PROVIDERS: ATTEND Nuclear Medicine Nuclear Cardiology
DX: T82.856A Stenosis of peripheral vascular stent, initial encounter (principal); I70.212 Atherosclerosis of native arteries of extremities with intermittent claudication, left leg; I70.1 Atherosclerosis of renal artery; M79.604 Pain in right leg; M79.605 Pain in left leg; I10 Essential (primary) hypertension; E11.9 Type 2 diabetes mellitus without complications; E78.00 Pure hypercholesterolemia, unspecified; M19.90 Unspecified osteoarthritis, unspecified site; J44.9 Chronic obstructive pulmonary disease, unspecified; K21.9 Gastro-esophageal reflux disease without esophagitis; M79.7 Fibromyalgia; M85.80 Other specified disorders of bone density and structure, unspecified site; F41.9 Anxiety disorder, unspecified; Z98.890 Other specified postprocedural states; Z79.899 Other long term (current) drug therapy; Z96.641 Presence of right artificial hip joint; Z86.73 Personal history of transient ischemic attack (TIA), and cerebral infarction without residual deficits; Z87.891 Personal history of nicotine dependence; Y83.8 Other surgical procedures as the cause of abnormal reaction of the patient, or of later complication, without mention of misadventure at the time of the procedure

== ENCOUNTER → 2021-05-18 | Outpatient (CLI) | payer OTHER, MEDICARE | LOC: SJCVCIMAG 07:11 | PROVIDERS: ATTEND Internal Medicine | DX: I65.23 Occlusion and stenosis of bilateral carotid arteries (principal); I70.8 Atherosclerosis of other arteries; I25.10 Atherosclerotic heart disease of native coronary artery without angina pectoris; M79.7 Fibromyalgia; J43.2 Centrilobular emphysema; E78.5 Hyperlipidemia, unspecified; I73.9 Peripheral vascular disease, unspecified; F41.9 Anxiety disorder, unspecified; M19.90 Unspecified osteoarthritis, unspecified site; J45.909 Unspecified asthma, uncomplicated; F32.9 Major depressive disorder, single episode, unspecified; E11.9 Type 2 diabetes mellitus without complications; K21.9 Gastro-esophageal reflux disease without esophagitis; K44.9 Diaphragmatic hernia without obstruction or gangrene; E78.00 Pure hypercholesterolemia, unspecified; G47.00 Insomnia, unspecified; G47.9 Sleep disorder, unspecified; M79.604 Pain in right leg; M79.605 Pain in left leg; Z87.891 Personal history of nicotine dependence; Z79.82 Long term (current) use of aspirin; Z79.84 Long term (current) use of oral hypoglycemic drugs; Z79.899 Other long term (current) drug therapy; Z82.49 Family history of ischemic heart disease and other diseases of the circulatory system; Z88.1 Allergy status to other antibiotic agents; Z88.6 Allergy status to analgesic agent; Z88.8 Allergy status to other drugs, medicaments and biological substances ==